=== PATIENT | male | born 1995 | race Caucasian/White ===

== ENCOUNTER 2019-10-14 11:50 | Emergency (ER) | payer MEDICAID ==
[~2019-10-14] VITALS: Ht 170.2 cm; Wt 55.8 kg
[2019-10-14 11:52] VITALS: Ht 170.2 cm; Wt 55.8 kg
[2019-10-14 14:01] LABS: FREE T4 0.96 ng/dL (0.76-1.46); FREE THYROXINE INDEX 2.6 ug/dL (1.4-4.5)
[2019-10-14 14:10] LABS: ALBUMIN 4.1 g/dL (3.4-5.0); ALKALINE PHOSPHATASE 74 U/L (46-116); ALT/SGPT 14 U/L (16-63); AST/SGOT 13 U/L (15-37); BILIRUBIN TOTAL 0.41 mg/dL (0.20-1.00); CALCIUM 8.8 mg/dL (8.5-10.1); CARBON DIOXIDE 31.3 mmol/L (21-32); CHLORIDE SERUM 104 mmol/L (98-107); CREATININE SERUM 0.9 mg/dL (0.7-1.3); GFR1 > 60 mL/min; GLUCOSE SERUM 91 mg/dL (74-106); HDL CHOLESTEROL 59 mg/dL (40-60); POTASSIUM SERUM 3.6 mmol/L (3.5-5.1); SODIUM SERUM 142 mmol/L (136-145); TOTAL PROTEIN, SERUM 7.8 g/dL (6.4-8.2); TRIGLYCERIDES 38 mg/dL (<150)
[2019-10-14 14:12] LABS: CHOLESTEROL 122 mg/dL (<200); CHOLESTEROL/HDL RATIO 2.1
[2019-10-14 14:14] LABS: BASOPHIL % 0.6 % (0-2); PLATELET COUNT 152 x10^3mcL (130-400); RED CELL DISTRIBUTION WIDTH 13.6 % (11.5-14.5)
[2019-10-14 14:22] LABS: T3 TOTAL 1.44 ng/mL
[2019-10-14 14:57] VITALS: BP 119/72
== END 2019-10-14 14:57 | disposition home or self-care (01) ==
LOC: ED 11:50
PROVIDERS: Specialist
DX: R06.02 Shortness of breath (principal)
CPT/HCPCS: 36415; 83880; 84439; Q0092

== ENCOUNTER 2020-03-14 14:59 | Emergency (ER) | payer MEDICAID ==
[~2020-03-14] VITALS: Ht 170.2 cm; Wt 59.0 kg
[2020-03-14 14:59] VITALS: BP 136/81; Ht 170.2 cm; Wt 59.0 kg
== END 2020-03-14 15:49 | disposition home or self-care (01) ==
LOC: ED 14:59
DX: Z02.79 Encounter for issue of other medical certificate (principal); G89.29 Other chronic pain; R09.89 Other specified symptoms and signs involving the circulatory and respiratory systems